=== PATIENT | female | born 2000 | race Caucasian/White ===

== ENCOUNTER 2018-05-09 16:31 | Outpatient (CLI) | payer OTHER, SELFPAY ==
[2018-05-09 16:32] VITALS: BP 123/88; PULSE 109; RESP 16; TEMP 37.3; O2SAT 98; BMI 20.4
--- NOTE | 2018-05-09 17:49 | ED.DCSUM_ITS ---
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 She woke this morning to find to bats in her dorm room. She has no obvious injury and does not know if she may have been bitten. She is advised to come in to start rabies vaccination protocol. Physical Examination: Vital signs are unremarkable. Patient sitting in a bedside chair. She is in no acute distress. Heart is regular rate and rhythm. Lung sounds are clear. Abdomen is soft nontender. Skin examination reveals no lesions. Test Results: [] Emergency Department Course and Treatment: Patient is given rabies immunoglobulin along with vaccine. She will be started on the vaccine protocol. Treatment Plan: [] Disposition: Discharge Impression: Rabies vaccination This note was generated with [employer] dictation software. It may contain incorrect words, spelling, and punctuation that were not noted in review of the chart prior to signing ED Disposition - Plan for ED Patient: Chief Complaint: Bite Referrals: [facility] Doctor,Out of [Primary Care Provider] -
--- NOTE | 2018-05-09 17:49 | ED.DEP ---
ED Disposition - Plan for ED Patient: Disposition: Home or Assisted Living Chief Complaint: Bite Instructions: Animal Bites and Scratches Referrals: [facility] Doctor,Out of [Primary Care Provider] - [facility] [GROUP OF PHYSICIANS] -
[2018-05-09] MEDS: Rabies Vaccine,Human Diploid 2.5 UNITS Vial IM (18:08)
[2018-05-09] MEDS: Rabies Immune Globulin 150 UNITS/ML 1220 UNITS IM (18:09)
[2018-05-09 18:26] VITALS: BP 123/84; PULSE 94; RESP 18; O2SAT 100
--- NOTE | 2018-05-09 18:29 | ED.RN ---
THIS NURSE REVIEWED D/C INSTRUCTIONS WITH PT. PT VERBALIZED UNDERSTANDING OF INSTRUCTIONS. PT DENIES ITCHING OR REDNESS AT INJECTION SITES. PT AMBULATES FROM ROOM ON OWN WITHOUT ASSISTANCE FROM STAFF
[2018-05-12 17:48] VITALS: BP 126/78; PULSE 100; RESP 14; TEMP 37; O2SAT 100; BMI 21.7
[2018-05-12] MEDS: Rabies Vaccine,Human Diploid 2.5 UNITS Vial IM (17:54)
== END 2018-05-12 17:54 ==
PROVIDERS: Emergency Provider Emergency Medicine; Family Provider Pediatrics; PCP Pediatrics; Visit Provider Emergency Medicine
DX: Z29.14 Encounter for prophylactic rabies immune globulin (principal); Z20.3 Contact with and (suspected) exposure to rabies
CPT/HCPCS: 90375; 90675; 96372; 99282

== ENCOUNTER → 2018-05-16 17:00 | Outpatient (CLI) | payer OTHER, SELFPAY ==
[2018-05-16] MEDS: Rabies Vaccine,Human Diploid 2.5 UNITS Vial IM (16:15)
[2018-05-16 16:49] VITALS: BP 118/71; PULSE 75; RESP 18; TEMP 36.7; O2SAT 97; BMI 21.7
== END ==
PROVIDERS: Family Provider Pediatrics; PCP Pediatrics; Visit Provider Emergency Medicine
DX: Z23 Encounter for immunization (principal)
CPT/HCPCS: 90675; 96372

== ENCOUNTER 2018-05-23 18:54 | Outpatient (CLI) | payer OTHER, SELFPAY ==
[2018-05-23 19:08] VITALS: BP 135/85; PULSE 81; RESP 16; TEMP 36.8; O2SAT 99; BMI 19.5
[2018-05-23] MEDS: Rabies Vaccine,Human Diploid 2.5 UNITS Vial IM (19:14)
== END 2018-05-23 19:26 | disposition home or self-care (01) ==
LOC: ED 19:31
PROVIDERS: Family Provider Pediatrics; PCP Pediatrics; Visit Provider Emergency Medicine
DX: Z23 Encounter for immunization (principal); Z20.3 Contact with and (suspected) exposure to rabies
CPT/HCPCS: 90675; 96372

== ENCOUNTER 2018-06-27 10:44 | Emergency (ER) | payer OTHER, SELFPAY ==
[2018-06-27 10:45] VITALS: BP 122/91; PULSE 91; RESP 16; TEMP 36.7; O2SAT 98; BMI 21.2
--- NOTE | 2018-06-27 10:58 | CT_ITS ---
STUDY: CT BRAIN WITHOUT CONTRAST REASON FOR EXAM: Female, 17 years old. 3 day history of a head injury. Headaches. RADIATION DOSAGE (If Supplied By Facility): CTDIvol = ( 44.99 ) mGy, DLP = ( 779.24 ) mGycm TECHNIQUE: Transaxial CT imaging of the brain was performed without administration of intravenous contrast material. Individualized dose optimization techniques were used for this CT. COMPARISON: None. FINDINGS: Normal soft tissue structures. Normal calvarium. Normal size ventricles and extra-axial spaces for the patient's age. Normal white matter tracts of the cerebral hemispheres. Normal basal ganglia and thalami. Normal brainstem. Normal cerebellum. There is no intracranial hemorrhage. There are no findings of an acute ischemic infarction. Normal visualized paranasal sinuses. Nasal septal deviation towards the left side of the midline. CT/Brain/Head without Contrast IMPRESSION: Normal unenhanced CT scan of the brain. Electronically Signed: Isaak Ortiz MD at 11:35 EDT Tel [phone], Service support ,
--- NOTE | 2018-06-27 11:16 | ED.VISSUMM ---
- ER Visit Summary Date of Service: 06/27/18 Chief Complaint: Head injury History of Present Illness: The patient is a 17 F who sustained a head injury 3 days ago. She was vacationing when she stood up and hit her head on a wood beam. She had no LOC at that time. Afterwards she felt dizzy and sat down. She did vomit once after this. She came back home and still not feel well so she went to the student center at the [facility] today. There is concern of some blood behind the right eardrum so they sent her over here. She states that she does still feel dizzy. No nausea at this time. Physical Examination: Vital signs reviewed. HEENT exam does show some very slight amount of blood in the right lower portion of the tympanic membrane. Heart is regular rate and rhythm without murmurs. Lungs are clear to auscultation. Abdomen is soft and nontender. Extremities reveal no edema. Skin exam normal. Neurologic exam normal. Test Results: CAT scan of the head is normal Emergency Department Course and Treatment: Patient is exhibiting symptoms of a concussion. She was counseled on the symptoms and her clinical course. I will write her a school note for this week. She will return when her symptoms are resolved. She will follow-up with the on campus clinic Treatment Plan: [] Disposition: Discharge Impression: Concussion without loss of consciousness This note was generated with [employer] dictation software. It may contain incorrect words, spelling, and punctuation that were not noted in review of the chart prior to signing ED Disposition - Plan for ED Patient: Chief Complaint: Trauma Referrals: Benson Pederson MD [Primary Care Provider] -
--- NOTE | 2018-06-27 11:53 | ED.DEP ---
ED Disposition - Plan for ED Patient: Disposition: Home or Assisted Living Chief Complaint: Trauma Instructions: ED Concussion Referrals: Benson Pederson MD [Primary Care Provider] -
[2018-06-27 12:13] VITALS: BP 126/84; PULSE 93; RESP 16; O2SAT 98
== END 2018-06-27 12:17 | disposition home or self-care (01) ==
PROVIDERS: Emergency Provider Emergency Medicine; Family Provider Pediatrics; PCP Pediatrics
DX: S06.0X0A Concussion without loss of consciousness, initial encounter (principal); W22.8XXA Striking against or struck by other objects, initial encounter; Y93.89 Activity, other specified; Y92.838 Other recreation area as the place of occurrence of the external cause; Y99.8 Other external cause status
CPT/HCPCS: 70450; 99282